=== PATIENT | male | born 1950 | race Caucasian/White ===

== ENCOUNTER 2024-11-02 12:43 | Outpatient (AMB) | payer OTHER, SELFPAY ==
--- NOTE | 2024-11-02 12:58 | MHC.OFFVIS ---
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 The tremors are mostly in his right hand and can be at rest, posture or action. He has trouble with his right hand coordination and also writing . he used to do a lot of small projects around the house and has difficulty. He noticed difficulty while cutting carrots.He stopped doing wood working, painting etc due to tremors.No change in speech , no drooling He cannot write now. He can use a fork and knife - slower. He had stroke 2 years ago- had COVID and had gait difficulties - was told he had a stroke , he had a clot removal procedure.He has been doing well. He is Ok with dressing and showering. His gait is normal .Balance is normal. Bowel movements are regular. He has frequent urination. He denies memory issues. Mood is stable . No fh/o tremors No head injury No exposure to chemicals. He was in [employer]. SLeep is good. No loud snoring. [facility], [facility] Medical History (Updated 11/02/24 @ 13:41 by Marielle Goldman MD) Coarse tremors Stroke Hypercholesterolemia Melanoma Raynaud's syndrome Low back pain Diverticulosis Actinic keratoses Post-nasal drip Surgical History (Updated 11/02/24 @ 13:12 by Crissy Asencio MA) H/O knee surgery H/O brain surgery H/O colonoscopy History of hernia repair H/O repair of rotator cuff Family History (Updated 11/02/24 @ 13:10 by Crissy Asencio MA) Father Dementia Social History (Updated 11/02/24 @ 12:59 by Crissy Asencio MA) Alcohol intake: current Patient Tobacco Use Status: Never used Tobacco Physical Exam Vital Signs: Last Vital Signs Pulse 78 11/02/24 13:03 BP 112/82 11/02/24 13:03 Pulse Ox 98 11/02/24 13:03 Oxygen Delivery Method Room Air 11/02/24 13:03 BMI result Body Mass Index 25.7 Const General: cooperative, healthy appearing and comfortable Nutritional Appearance: average body habitus Orientation/consciousness: patient oriented x3 Eyes Pupils: Equal, round and reactive pupils present Neck Neck: Yes no meningeal signs Neuro Other: Mild decreased blink Decreased movement right face Lazaro UE tremors intermittent R>L rest , action and posture. No cog wheel rigidty Hand writing- starts out normal but progressively worsened due to intermittent spasms He was able to do archimedes spiral with tremors Gait - decreased arm swing on the right . Normal stride and balance. General: patient oriented x3, tone normal, moves all extremities, no meningeal signs and no focal motor deficits Cranial nerves: Yes Facial sensation intact/muscles of mastication intact, Yes Equal, round and reactive pupils present, Yes Bilaterally intact EOM present, Yes Nystagmus not present, Yes Normal facial strength present and Yes Midline tongue present Cognition (Neuro): normal cognition Motor exam (neuro): 5/5 motor strength present throughout and Normal motor muscle tone present throughout Deep tendon reflexes (DTR's): Right triceps reflex intensity grade: 1+, Left triceps reflex intensity grade: 1+, Rt Biceps (C5, C6): 1+, Left biceps reflex intensity grade: 1+, Right brachioradialis reflex intensity grade: 1+, Left brachioradialis reflex intensity grade: 1+, Right patellar reflex intensity grade: 1+, Left patellar reflex intensity grade: 1+, Right ankle reflex intensity grade: 1+ and Left ankle reflex intensity grade: 1+ Coordination: [id number] test normal Assessment & Plan Assessment & Plan (1) Coarse tremors: Comment: ? essential tremors with mild extrapyramidal symptoms Code(s): G25.2 - Other specified forms of tremor Category: Medical Plan I will trial him on propranolol 10mg tid as needed Will review records from [facility] OT for hand exericses Orders: Orders OT Evaluation and Treatment 11/02/24 G25.2 - Other specified forms of tremor Medications: New propranolol 10 mg PO TID PRN 90 tabs 3RF tremors Coding Level of Care Code New Pt Level 4 (35389) Complex EM visit Add On G2211 Diagnoses Coarse tremors G25.2
[2024-11-02 13:03] VITALS: BP 112/82; PULSE 78; O2SAT 98; BMI 25.7
== END 2024-11-02 13:45 | disposition home or self-care (01) ==
PROVIDERS: PCP Internal Medicine; Visit Provider Psychiatry & Neurology Neurology
DX: G25.2 Other specified forms of tremor (principal)
CPT/HCPCS: 99204

== ENCOUNTER → 2024-11-02 12:43 | Outpatient (BNVA) | payer OTHER, SELFPAY | PROVIDERS: PCP Internal Medicine; Visit Provider Psychiatry & Neurology Neurology ==

== ENCOUNTER 2025-05-03 10:49 | Outpatient (AMB) | payer OTHER, SELFPAY ==
--- NOTE | 2025-05-03 10:50 | A.OFFVIS_ITS ---
Vital Signs 05/03/25 10:51 Height 6 ft 2 in Weight 200 lb 2 oz BMI 25.7 BP 122/80 Blood Pressure Location Rt brachial Position Sitting Pulse 58 Pulse Source Pulse Oximeter Pulse Oximetry (%) 99 Oxygen Delivery Method Room Air Intake Visit Reasons: 6 mo follow up Intake Note: Patient following up on propranolol trial per order oral and maxillofacial surgery they contacted patient to book OT patient was going to call back to book. Assistant Sales Director Required: No Accompanied by: Spouse Allergies No Known Allergies Allergy (Verified 05/03/25 10:55) HPI Comments Details: 74y/o Right handed male comes for evaluation of tremors that started about 5 years ago .He is doing well with propranalol. History form last vist- The tremors are mostly in his right hand and can be at rest, posture or action. He has trouble with his right hand coordination and also writing . he used to do a lot of small projects around the house and has difficulty. He noticed difficulty while cutting carrots.He stopped doing wood working, painting etc due to tremors.No change in speech , no drooling He cannot write now. He can use a fork and knife - slower. He had stroke 2 years ago- had COVID and had gait difficulties - was told he had a stroke , he had a clot removal procedure.He has been doing well. He is Ok with dressing and showering. His gait is normal .Balance is normal. Bowel movements are regular. He has frequent urination. He denies memory issues. Mood is stable . No fh/o tremors No head injury No exposure to chemicals. He was in [employer]. SLeep is good. No loud snoring. [facility] Medical History Coarse tremors Stroke Hypercholesterolemia Melanoma Raynaud's syndrome Low back pain Diverticulosis Actinic keratoses Post-nasal drip Surgical History H/O knee surgery H/O brain surgery H/O colonoscopy History of hernia repair H/O repair of rotator cuff Family History Father Dementia Social History Alcohol intake: current Patient Tobacco Use Status: Never used Tobacco Physical Exam Vital Signs: Last Vital Signs Pulse 58 05/03/25 10:51 BP 122/80 05/03/25 10:51 Pulse Ox 99 05/03/25 10:51 Oxygen Delivery Method Room Air 05/03/25 10:51 BMI result Body Mass Index 25.7 Const General: cooperative, healthy appearing and comfortable Nutritional Appearance: average body habitus Orientation/consciousness: patient oriented x3 Eyes Pupils: Equal, round and reactive pupils present Neck Neck: Yes no meningeal signs Neuro Other: Mild decreased blink Decreased movement right face Lazaro UE tremors intermittent R>L rest , action and posture. No cog wheel rigidty Hand writing- starts out normal but progressively worsened due to intermittent spasms He was able to do archimedes spiral with tremors Gait - decreased arm swing on the right . Normal stride and balance. General: patient oriented x3, tone normal, moves all extremities, no meningeal signs and no focal motor deficits Cranial nerves: Yes Facial sensation intact/muscles of mastication intact, Yes Equal, round and reactive pupils present, Yes Bilaterally intact EOM present, Yes Nystagmus not present, Yes Normal facial strength present and Yes Midline tongue present Cognition (Neuro): normal cognition Motor exam (neuro): 5/5 motor strength present throughout and Normal motor muscle tone present throughout Coordination: [id number] test normal Assessment & Plan Assessment & Plan (1) Coarse tremors: Comment: ? essential tremors with mild extrapyramidal symptoms Code(s): G25.2 - Other specified forms of tremor Category: Medical Plan Continue propranolol 10mg tid as needed Coding Level of Care Code Est Pt Level 4 (56810) Diagnoses Coarse tremors G25.2
[2025-05-03 10:51] VITALS: BP 122/80; PULSE 58; O2SAT 99; BMI 25.7
== END 2025-05-03 11:19 | disposition home or self-care (01) ==
LOC: HO.HSMS 10:50
PROVIDERS: PCP Internal Medicine; Visit Provider Psychiatry & Neurology Neurology
DX: G25.2 Other specified forms of tremor (principal)
CPT/HCPCS: 99214

== ENCOUNTER → 2025-05-03 10:49 | Outpatient (BNVA) | payer OTHER, SELFPAY | PROVIDERS: PCP Internal Medicine; Visit Provider Psychiatry & Neurology Neurology ==

== ENCOUNTER 2025-11-03 09:50 | Outpatient (AMB) | payer OTHER, SELFPAY ==
--- NOTE | 2025-11-03 09:53 | MHC.OFFVIS ---
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 History from initial visit-- The tremors are mostly in his right hand and can be at rest, posture or action. He has trouble with his right hand coordination and also writing . he used to do a lot of small projects around the house and has difficulty. He noticed difficulty while cutting carrots.He stopped doing wood working, painting etc due to tremors.No change in speech , no drooling He cannot write now. He can use a fork and knife - slower. He had stroke 2 years ago- had COVID and had gait difficulties - was told he had a stroke , he had a clot removal procedure.He has been doing well. He is Ok with dressing and showering. His gait is normal .Balance is normal. Bowel movements are regular. He has frequent urination. He denies memory issues. Mood is stable . No fh/o tremors No head injury No exposure to chemicals. He was in [employer]. SLeep is good. No loud snoring. [facility] Medical History Coarse tremors Stroke Hypercholesterolemia Melanoma Raynaud's syndrome Low back pain Diverticulosis Actinic keratoses Post-nasal drip Surgical History H/O knee surgery H/O brain surgery H/O colonoscopy History of hernia repair H/O repair of rotator cuff Family History Father Dementia Social History Alcohol intake: current Patient Tobacco Use Status: Never used Tobacco Physical Exam Vital Signs: Last Vital Signs Pulse 70 11/03/25 09:54 BP 112/80 11/03/25 09:54 Pulse Ox 96 11/03/25 09:54 Oxygen Delivery Method Room Air 11/03/25 09:54 BMI result Body Mass Index 26.4 Const General: cooperative, healthy appearing and comfortable Nutritional Appearance: average body habitus Orientation/consciousness: patient oriented x3 Eyes Pupils: Equal, round and reactive pupils present Neck Neck: Yes no meningeal signs Neuro Other: Mild decreased blink Decreased movement right face Lazaro UE tremors intermittent R>L rest , action and posture. No cog wheel rigidty Hand writing- starts out normal but progressively worsened due to intermittent spasms He was able to do archimedes spiral with tremors Gait - decreased arm swing on the right . Normal stride and balance. General: patient oriented x3, tone normal, moves all extremities, no meningeal signs and no focal motor deficits Cranial nerves: Yes Facial sensation intact/muscles of mastication intact, Yes Equal, round and reactive pupils present, Yes Bilaterally intact EOM present, Yes Nystagmus not present, Yes Normal facial strength present and Yes Midline tongue present Cognition (Neuro): normal cognition Motor exam (neuro): 5/5 motor strength present throughout and Normal motor muscle tone present throughout Coordination: [id number] test normal Assessment & Plan Assessment & Plan (1) Coarse tremors: Comment: ? essential tremors with mild extrapyramidal symptoms Code(s): G25.2 - Other specified forms of tremor Category: Medical Plan Continue propranolol 10mg tid as needed Coding Level of Care Code Est Pt Level 4 (59741) Diagnoses Coarse tremors G25.2
[2025-11-03 09:54] VITALS: BP 112/80; PULSE 70; O2SAT 96; BMI 26.4
== END 2025-11-03 10:16 | disposition home or self-care (01) ==
PROVIDERS: PCP Internal Medicine; Visit Provider Psychiatry & Neurology Neurology
DX: G25.2 Other specified forms of tremor (principal)
CPT/HCPCS: 99214